=== PATIENT | female | born 1990 | race African-American/Black ===

== ENCOUNTER 2022-08-27 13:46 | Outpatient (CLI) | payer BC, SELFPAY ==
--- NOTE | 2022-08-27 13:55 | ECG_ITS ---
Measurements Intervals [place] Rate: 85 P: 52 NH: 124 QRS: 50 QRSD: 70 T: 20 QT: 349 QTc: 417 Interpretive Statements SINUS RHYTHM NO PREVIOUS ECG AVAILABLE FOR COMPARISON Electronically Signed On 08-28-2022 14:35:39 CDT by Asha Card M.D.
== END 2022-08-27 13:47 | disposition home or self-care (01) ==
LOC: ANHSURGERY 13:52
PROVIDERS: PCP Family Medicine; Visit Provider Obstetrics & Gynecology
DX: I10 Essential (primary) hypertension (principal); Z01.818 Encounter for other preprocedural examination
CPT/HCPCS: 93005

== ENCOUNTER 2022-08-29 03:08 | Day surgery (SDC) | payer BC, MEDICAID, SELFPAY ==
[2022-08-21 11:14] VITALS: BMI 26.1
--- NOTE | 2022-08-21 11:23 | PC.NURSE ---
Report to the Outpatient Waiting Room, entrance under the green pavilion located off [facility], at time 9:00 on date 08/29/22. OR Time: 11:00. Time changes happen often and if your time is changed the preop area will call you the afternoon before. - You and your visitor will be asked to self-screen and do not enter if you have any COVID symptoms. - Only one visitor and NO children visitors are allowed at this time. - The patient visitor is requested to leave or wait in car when not with patient due to restrictions. - A mask is required within the hospital. Patients may have clear liquids (water, carbonated beverages, clear teas, apple juice) until 3 hours prior to surgery (8:00) with a maximum of 20 ounces. - No food from midnight until time of surgery Take the following medications with a SIP of water the morning of surgery: AMLODIPINE, PAIN PILL IF NEEDED Medications to discontinue per physician: N/A Date to take last dose: N/A Please no make-up, nail english, hairspray, perfume, deodorant, or body powder the day of surgery. No jewelry (including any body piercings) or valuables the day of surgery, leave them at home. Please take a shower or bath the night before, or the morning of, surgery with an antibacterial soap. Wear comfortable, loose fitting clothing. - Jewelry must be removed prior to entering the operating room. Rings and piercings that are not removed may be cut off. - The hospital will not accept responsibility for valuables. - Please leave all valuables, including medications, at home the day of surgery. If you are going home after surgery, a licensed milk pickup truck driver must drive you home. - NO public transportation without another adult. - We recommend that an adult stay with you for 24 hours following discharge. - We also recommend that you do not drive, make important decision, drink alcoholic beverages, or take any drugs that were not prescribed by your health care provider for at least 24 hours after your discharge time. Follow any additional instructions given to you from your surgeon. If you or anyone in your household have experienced Covid symptoms in the past week, please notify your surgeon or the nurse liaison at the phone number below for possible testing. Telephone instructions given to PT - FAUSTINO ANGLIN and asked if any additional questions and then verbalized understanding. Patient advised to call surgeon office or pre surgery nurse liaison [phone] if any additional questions.
--- NOTE | 2022-08-29 07:28 | WPDHPUPDATE1 ---
History and Physical Update Update Date/Time: 08/29/22 07:28 32-year-old female presents with vaginal bleeding and pain. See last office note for plan. Since last seen in the office she has changed her mind about the ablation and tubal, therefore today we will be proceeding with: 1. Hysteroscopy with uterine curettings 2. LEEP conization History and Physical has been reviewed, including an updated exam of the patient. There are NO changes in the patient's condition. Risks, benefits, and alternatives have been discussed and questions answered. Patient agrees to proceed with procedure.
[2022-08-29 08:52] VITALS: BP 128/79; PULSE 95; RESP 20; TEMP 36.8; O2SAT 100
[2022-08-29] MEDS: LACTATED RINGERS 1,000 ML 30 ML IV CONT (09:25)
--- NOTE | 2022-08-29 09:35 | WPDANESEPPF ---
Anes - Initial Pre Proc Eval Procedure: Operation Date: 08/29/22 11:00 Proposed Procedures p Hysteroscopy, Dilation and Curettage - Damian Nuñez MD s Loop Electrical Excision Procedure - Damian Nuñez MD Date/Time: 08/29/22 09:35 Surgeon: Damian Nuñez MD Pre Op Diagnosis: Menometrorrhagia Patient Data Age: 32 Gender: F Height: 1.57 m Weight: 64.86 kg Allergies Allergy/AdvReac Type Severity Reaction Status Date / Time No Known Allergies Allergy Verified 08/29/22 08:53 Home Medications Medication Instructions Recorded Confirmed Type amlodipine 5 mg tablet 5 mg PO DAILY 08/21/22 08/29/22 History hydrocodone 5 mg-acetaminophen 325 1 tablet PO Q4H PRN Pain 08/21/22 08/29/22 History mg tablet Patient hx anesthesia problems: none Family hx anesthesia problems: none Results Review: All pre-operative results and documents have been reviewed as part of the pre-operative evaluation. [facility] Past Medical History Medical History (Updated 08/29/22 @ 09:35 by Juan M Bridges MD) History of hypertension rx meds Hx LEEP (loop electrosurgical excision procedure), cervix, Family History Family History Grandparent Breast cancer paternal grandmother/ maternal grandmother Diabetes mellitus maternal grandmother Mother Hypertension Coronary artery disease Fatty liver Social History Social History Smoking status: Never smoker Alcohol intake: former Alcohol use details: 2 month Substance use: never Substance use type: does not use Living arrangements: with family Additional living arrangements comments: mother 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 Gender identity (if verbalized by the patient): Female Sexual Orientation (if Verbalized by the Patient): Straight or Heterosexual Spiritual care concerns: No Anes - Eval Final PreProcedure Day of Procedure 08/29/22 09:35 Patient weight: normal Heart: regular rate and rhythm Lungs: clear to auscultation Airway: Mallampati scale class II Neurological: alert and oriented Last oral intake: >/= 8 hours ASA classification: II Emergent: no Anesthesia type and monitoring: general GIVS and standard monitoring Results Review: All pre-operative results and documents have been reviewed as part of the pre-operative evaluation. Informed Consent: The patient's anesthetic plan and its attendant risks and benefits were discussed with the patient/family/POA. Questions were solicited and answers provided to the satisfaction of the patient/family/POA.
--- NOTE | 2022-08-29 11:01 | W.PM.PROC2 ---
Procedure Note - Detailed Date of Procedure 08/29/22 Pre-op Diagnosis Menometrorrhagia Post-op Diagnosis Same Procedure Performed 1. Hysteroscopy with uterine curettings 2. LEEP Surgeon Damian Nuñez MD Anesthesia MAC Findings 1. Stenotic cervix 2. Scant atrophic endometrial cavity 3. Transformation zone delineated Description of Procedure Patient prepped draped usual manner for this procedure. Stenotic cervix was dilated to allow the small hysteroscope placed endometrial cavity. Curettings were obtained though they were scant. Transformation zone was then identified and ectocervical specimen was obtained. Patient was sent to her room after the biopsy site was cauterized. Estimated Blood Loss 10 Drains No Packing No Pathology Yes Complications No immediate complications Condition Stable Disposition PACU [facility] Billing Surgery - Charge Forward: Surgery Billing
[2022-08-29 11:15] VITALS: BP 106/73; PULSE 101; RESP 12; O2SAT 100
[2022-08-29 11:35] VITALS: BP 123/84; PULSE 79; RESP 16
[2022-08-29] MEDS: fentaNYL CITRATE INJ (*CRX) 100 MCG/2 ML VIAL 25 MCG IV PUSH ×2 (11:37→11:40)
[2022-08-29] MEDS: oxyCODONE HCL (*CRX) 5 MG TAB IR PO (11:59)
[2022-08-29 12:05] VITALS: BP 110/73; PULSE 83; RESP 20
[2022-08-29 12:20] VITALS: BP 111/70; PULSE 80; RESP 20
== END 2022-08-29 12:32 | disposition home or self-care (01) ==
PROVIDERS: PCP Family Medicine; Visit Provider Obstetrics & Gynecology
PROC: 0UDB8ZZ Extraction of Endometrium, Via Natural or Artificial Opening Endoscopic (ICD-10-PCS; CPT 58558; principal; 2022-08-29 11:00)
PROC: 0UBC7ZZ Excision of Cervix, Via Natural or Artificial Opening (ICD-10-PCS; CPT 57522; 2022-08-29 11:00)
DX: N92.1 Excessive and frequent menstruation with irregular cycle (principal); R10.2 Pelvic and perineal pain; N94.6 Dysmenorrhea, unspecified; N88.8 Other specified noninflammatory disorders of cervix uteri
CPT/HCPCS: 58558; 57522; 88305; 88307; A9270; J1100; J1885; J2250; J2405; J2704; J3010; J7120

== ENCOUNTER 2022-09-09 11:08 | Emergency (ER) | payer BC, MEDICAID, SELFPAY ==
[2022-09-09 11:16] VITALS: BP 126/79; PULSE 102; RESP 16; TEMP 36.8; O2SAT 100
[2022-09-09 11:47] LABS: Basophils Percent Auto 0.3 % (0.2-1.2); Eosinophils Percent Auto 0.3 % (0-4.4); Hematocrit 38.1 % (37.0-47.0); Hemoglobin 12.1 g/dL (12.0-15.0); Immature Granulocyte Absolute 0.01 K/mm3 (0.00-0.031); Immature Granulocyte Percent A 0.1 % (0-0.5); Lymphocytes Absolute Auto 2.01 K/mm3 (0.9-3.2); Mean Corpuscular HGB Conc 31.8 g/dl (32-36); Mean Corpuscular Hemoglobin 28.7 pg (26-34); Mean Corpuscular Volume 90.3 fl (80-100); Mean Platelet Volume 9.9 fl (7.4-10.4); Monocytes Absolute Auto 0.4 K/mm3 (0.1-0.6); Monocytes Percent Auto 5.2 % (2.6-8.5); Neutrophils Absolute Auto 4.5 K/mm3 (1.3-6.7); Neutrophils Percent Auto 65.1 % (45.5-73.1); Platelet Count Result 395 k/mm3 (150-375); Red Blood Count 4.22 M/mm3 (4.2-5.4); Red Cell Distribution Width 13.1 % (11.5-14.5); White Blood Count 6.9 K/mm3 (4.5-10.0)
--- NOTE | 2022-09-09 11:55 | ED.RECABL ---
HPI - Recheck/Abnormal Lab/Rx General Chief Complaint: Recheck/Abnormal Lab/Rx Stated Complaint: post op bleeding Time Seen by Provider: 09/09/22 11:23 History of Present Illness HPI narrative: 32-year-old female who has history of heavy uterine bleeding requiring a recent D&C presents here with concern that she is still having heavy bleeding, with occasional blood clots. Related Data Home Medications Medication Instructions Recorded Confirmed amlodipine 5 mg tablet 5 mg PO DAILY 08/21/22 08/29/22 Allergies Allergy/AdvReac Type Severity Reaction Status Date / Time No Known Allergies Allergy Verified 09/09/22 11:15 Review of Systems Review of Systems: CONST: Fatigue HEENT: No sore throat C/V: No chest pain RESP: No shortness of breath GI: No nausea : Vaginal bleeding M/S: No joint pain. SKIN: No rash. 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 EYES: EOMI, conjunctiva normal ENT: Hearing grossly intact LUNGS: Nonlabored breathing. HEART: Minimally tachycardic ABD: [Soft], [nontender to palpation] EXT: Normal range of motion : With nurse metal spinner in room. No active vaginal bleeding, no blood in vault SKIN: [No rashes or lesions.] NEURO: [Alert and oriented x 3. No gross focal sensory or strength deficits.] PSYCH: Normal affect Course Vital Signs Vital signs: Vital Signs Temperature 98.2 F 09/09/22 11:16 Pulse Rate 102 H 09/09/22 11:16 Respiratory Rate 16 09/09/22 11:16 Blood Pressure 126/79 09/09/22 11:16 Pulse Oximetry 100 09/09/22 11:16 Temperature 98.2 F 09/09/22 11:16 Pulse Rate 102 H 09/09/22 11:16 Respiratory Rate 16 09/09/22 11:16 Blood Pressure 126/79 09/09/22 11:16 Pulse Oximetry 100 09/09/22 11:16 MDM - Recheck/Abnormal Lab/Rx MDM Narrative Medical decision making narrative: 32-year-old female presenting with concern for heavy uterine bleeding, vital signs stable here, on exam she has soft nontender abdomen, no blood in the vaginal vault and no active bleeding at this time, CT obtained to rule out anemia and this is normal. Patient is reassured and she is agreeable to follow-up with her surgeon in the next few days she was ready has an appointment, return precautions provided. She is stable for discharge at this time. She'd like to try TXA again so I have ordered this for her. Lab Data Result diagrams: 09/09/22 11:39 09/09/22 11:39 Labs: Lab Results 09/09/22 09/09/22 09/09/22 Range/Units 11:39 11:39 11:39 WBC 6.9 (4.5-10.0) K/mm3 RBC 4.22 (4.2-5.4) M/mm3 Hgb 12.1 (12.0-15.0) g/dL Hct 38.1 (37.0-47.0) % MCV 90.3 (80-100) fl MCH 28.7 (26-34) pg MCHC 31.8 L (32-36) g/dl RDW 13.1 (11.5-14.5) % Plt Count 395 H (150-375) k/mm
[2022-09-09 12:03] LABS: Anion Gap 16 mmol/L (8-16); Blood Urea Nitrogen 16 mg/dL (7-17); Calcium 8.5 mg/dL (8.4-10.2); Carbon Dioxide 25 mmol/L (22-30); Chloride 106 mmol/L (98-107); Estimated CRCL calculation 95 ml/min; Estimated Glomerular Filt Rate > 60; Glucose 96 mg/dL (65-110); Potassium 3.8 mmol/L (3.4-5.0); Sodium 147 mmol/L (137-145)
== END 2022-09-09 12:28 | disposition home or self-care (01) ==
PROVIDERS: Emergency Provider Emergency Medicine; PCP Family Medicine
DX: N92.0 Excessive and frequent menstruation with regular cycle (principal); I10 Essential (primary) hypertension
CPT/HCPCS: 36415; 80048; 81025; 85025; 86850; 86900; 86901; 99283